=== PATIENT | female | born 1985 | race Caucasian/White ===

== ENCOUNTER 2018-03-07 20:48 | Emergency (ER) | payer OTHER ==
[~2018-03-07] VITALS: Ht 162.6 cm; Wt 140.2 kg
[2018-03-07 21:03] VITALS: BP 125/74
--- NOTE | 2018-03-07 21:06 | NUR ---
to lobby ambulatory , vss , a/w bed, serene noted
--- NOTE | 2018-03-07 21:11 | NUR ---
PT TAKEN TO BED 1 VIA W/C
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
[2018-03-07 22:50] VITALS: BP 133/84
--- NOTE | 2018-03-07 22:50 | NUR ---
Patient discharged with v/s stable. Written and verbal after care instructions given and explained. Patient alert, oriented and verbalized understanding of instructions. Ambulatory with crutches with steady gait. All questions addressed prior to discharge. ID band removed. Patient advised to follow up with PMD. Rx of Tramadol and Motrin given. Patient educated on indication of medication including possible reaction and side effects. Opportunity to ask questions provided and answered.
--- NOTE | 2018-03-07 22:53 | NUR ---
ATTEMPTED TO HAVE PT RETURN DEMONSTRATION ON CRUTCHES, PT REFUSED TO DEOMONSTRATE USE UNTIL TIME OF DISCHARGE. PT STATED HEIGHT IS 5'4, ADJUSTED CRUTCHES TO 5'4 AND LEFT WITH PT.
--- NOTE | 2018-03-07 23:26 | NUR ---
Noticed pt walking with crutches very poorly. Made adjustments to crutches to fit better and did further instruction. Focused teaching on not putting wt on crutches and straight arming, wide base, small steps. Pt is struggling with the technique but getting it correct. Pt is quite tired. Walked pt out to car while reinforcing teaching. Return demo was fair.
== END 2018-03-07 22:50 | disposition home or self-care (01) ==
LOC: MED 20:48
DX: S93.401A Sprain of unspecified ligament of right ankle, initial encounter (principal); J45.909 Unspecified asthma, uncomplicated; E03.9 Hypothyroidism, unspecified; Z88.6 Allergy status to analgesic agent; Z88.5 Allergy status to narcotic agent; V47.5XXA Car driver injured in collision with fixed or stationary object in traffic accident, initial encounter; Y93.89 Activity, other specified; Y92.85 Railroad track as the place of occurrence of the external cause; Y99.8 Other external cause status
CPT/HCPCS: 73610; 99283; Q0092

== ENCOUNTER 2020-01-28 20:00 | Emergency (ER) | payer OTHER ==
[~2020-01-28] VITALS: Ht 162.6 cm; Wt 120.7 kg
[2020-01-28 20:07] VITALS: BP 123/89
--- NOTE | 2020-01-28 20:07 | NUR ---
RIA LENZ IN TRIAGE FOR PT MEDICAL EVALUATION.
--- NOTE | 2020-01-28 20:09 | NUR ---
34 Y/O FEMALE PRESENTED TO THE ED C/O RIGHT MIDDLE FINGER PAIN THAT IS 7/10, PT DESCRIBED PAIN THROBBING AND SHOOTING THAT DOESN'T RADIATE X1 WK. PT DOESN'T REMEMBER ANY TRAUMA TO THE AREA. CMS INTACT. NO OTHER SWELLING NOTED IN THE RIGHT HAND ASIDE FROM R MIDDLE FINGER SWELLING AROUND THE CUTICLE OF THE NAIL. PT DENIES TAKING ANY MEDS FOR PAIN TODAY. PT DENIES FEVER, N/V OR DIARRHEA. PT IS SITTING ON THE BED, BED IS LOCKED AND IN LOWEST POSITION. PT IS NOT IN ANY ACUTE DISTRESS AT THIS TIME. PMH: SEIZURES, DIABETES, FIBROMYALGIA NKA
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
--- NOTE | 2020-01-28 20:13 | NUR ---
PT AMBULATED TO RESTROOM WITH STEADY GAIT
--- NOTE | 2020-01-28 20:15 | NUR ---
PT PROVIDED URINE SAMPLE AT THIS TIME.
--- NOTE | 2020-01-28 20:19 | NUR ---
ERPA AT BEDSIDE FOR RE-EVALUATION
[2020-01-28] MEDS ORDERED: IBUPROFEN 600 MG TAB PO ONE (20:25)
--- NOTE | 2020-01-28 20:28 | NUR ---
erpa at bedside for procedure
[2020-01-28] MEDS ORDERED: ACETAMINOPHEN EXTRA STRENGTH 500 MG TAB PO ONE (20:35)
[2020-01-28] MEDS ORDERED: LIDOCAINE JELLY 2% 30 ML TUBE TP ONE (20:55)
--- NOTE | 2020-01-28 21:10 | NUR ---
PER RIA LENZ , ADMINISTER LIDOCAINE 2% TOPICAL ON PT FINGER PRIOR TO EMT BANDAGING FINGER.
[2020-01-28 21:30] VITALS: BP 123/89
== END 2020-01-28 21:30 | disposition home or self-care (01) ==
LOC: MED 20:00
DX: L03.011 Cellulitis of right finger (principal); E11.9 Type 2 diabetes mellitus without complications; E03.9 Hypothyroidism, unspecified; M54.30 Sciatica, unspecified side; R56.9 Unspecified convulsions
CPT/HCPCS: 81025; 99284

== ENCOUNTER 2020-10-12 06:35 | Emergency (ER) | payer OTHER ==
[~2020-10-12] VITALS: Ht 162.6 cm; Wt 114.3 kg
[2020-10-12 06:41] VITALS: BP 121/87
--- NOTE | 2020-10-12 06:43 | NUR ---
To ED bed 07
--- NOTE | 2020-10-12 06:44 | NUR ---
states has fibromyalgia and needs refill of a compound cream prescription. patient reports have not been able to see PCP but is traveling to [place] and needs medication to be filled. AAOx4. VSS. Denies pmh nkda
--- NOTE | 2020-10-12 06:50 | NUR ---
Dr. Alberto examining patient.
[2020-10-12 07:05] VITALS: BP 121/87
--- NOTE | 2020-10-12 07:05 | NUR ---
Patient discharged with v/s stable. Written and verbal after care instructions given and explained. Patient alert, oriented and verbalized understanding of instructions. Ambulatory with steady gait. All questions addressed prior to discharge. ID band removed. Patient advised to follow up with PMD. Rx of compound cream given. Patient educated on indication of medication including possible reaction and side effects. Opportunity to ask questions provided and answered.
== END 2020-10-12 07:05 | disposition home or self-care (01) ==
LOC: MED 06:35
DX: M79.7 Fibromyalgia (principal); E11.9 Type 2 diabetes mellitus without complications; E03.9 Hypothyroidism, unspecified; Z98.84 Bariatric surgery status
CPT/HCPCS: 99283

== ENCOUNTER 2021-03-23 23:52 | Emergency (ER) | payer OTHER ==
[~2021-03-23] VITALS: Ht 162.6 cm; Wt 112.9 kg
[2021-03-24 00:04] VITALS: BP 137/59
--- NOTE | 2021-03-24 00:06 | NUR ---
PT TO LOBBY
[2021-03-24] MEDS ORDERED: TRAM50TA3 PO (00:37)
== END 2021-03-24 00:44 | disposition home or self-care (01) ==
LOC: MED 23:52
DX: M79.10 Myalgia, unspecified site (principal); E11.9 Type 2 diabetes mellitus without complications; E03.9 Hypothyroidism, unspecified; Z98.84 Bariatric surgery status
CPT/HCPCS: 99283

== ENCOUNTER 2021-07-31 09:42 | Emergency (ER) | payer OTHER ==
[~2021-07-31] VITALS: Ht 162.6 cm; Wt 116.7 kg
[~2021-07-31 09:42] MED LIST: TRAM50TA3 PO
[2021-07-31 09:43] VITALS: BP 109/86
--- NOTE | 2021-07-31 09:52 | NUR ---
PT AMB TO BED 11.
--- NOTE | 2021-07-31 10:00 | NUR ---
35 Y/O FEMALE HERE FOR MED REFILL. PT STATES SHE RAN OUT OF MEDICATIONS YESTERDAY. STATES PAIN 9/10 THROUGHOUT BODY. DENIES EVER/CHILLS. DENIES N/V. RX: 20% TRAMADOL 4% AMATRIPTALINE 10% DEXTROMETHOPHAN 150 GRAMS APPLY 1 GRAM EVERY 6 HOURS. PMH: FIBROMYALGIA NKA
[2021-07-31 11:54] VITALS: BP 109/86
--- NOTE | 2021-07-31 11:54 | NUR ---
Patient discharged with v/s stable. Written and verbal after care instructions given FOR MEEDICATION REFILL and explained. Patient alert, oriented and verbalized understanding of instructions. Ambulatory with steady gait. All questions addressed prior to discharge. ID band removed. Patient advised to follow up with PMD. Rx of 20% TRAMADOL4% [id number]% DEXTROMETHOPHAN 150 GRAMS APPLY 1 GRAM EVERY 6 HOURS. given. Patient educated on indication of medication including possible reaction and side effects. Opportunity to ask questions provided and answered.
== END 2021-07-31 11:54 | disposition home or self-care (01) ==
LOC: MED 09:42
DX: M79.7 Fibromyalgia (principal); E11.9 Type 2 diabetes mellitus without complications; E03.9 Hypothyroidism, unspecified; Z76.0 Encounter for issue of repeat prescription; Z79.899 Other long term (current) drug therapy
CPT/HCPCS: 99281

== ENCOUNTER 2021-10-15 13:31 | Emergency (ER) | payer OTHER ==
[~2021-10-15] VITALS: Ht 162.6 cm; Wt 108.1 kg
[2021-10-15 13:55] VITALS: BP 105/63
[2021-10-15] MEDS ORDERED: BACTO TP (14:08)
[2021-10-15] MEDS ORDERED: HYDR-637 PO (14:08)
[2021-10-15] MEDS ORDERED: BENC TP (14:08)
[2021-10-15] MEDS ORDERED: PRED20TA5 PO (14:08)
--- NOTE | 2021-10-15 14:22 | NUR ---
Patient discharged with v/s stable. Written and verbal after care instructions given. Patient alert, oriented and verbalized understanding of instructions. Ambulatory with steady gait. All questions addressed prior to discharge. ID band removed. Patient advised to follow up with PMD. Rx of Bactroban, Benadryl, Hydroxyzine and Prenidnisone given. Opportunity to ask questions provided and answered.
== END 2021-10-15 14:22 | disposition home or self-care (01) ==
LOC: MED 13:31
DX: L29.9 Pruritus, unspecified (principal); E03.9 Hypothyroidism, unspecified; E11.9 Type 2 diabetes mellitus without complications; Z79.4 Long term (current) use of insulin; Z79.899 Other long term (current) drug therapy
CPT/HCPCS: 99283

== ENCOUNTER 2022-03-14 03:45 | Emergency (ER) | payer OTHER ==
[~2022-03-14] VITALS: Ht 162.6 cm; Wt 110.2 kg
[~2022-03-14 03:45] MED LIST changes: +BACTO TP; +BENC TP; +HYDR-637 PO; +PRED20TA5 PO
[2022-03-14 04:02] VITALS: BP 121/62
--- NOTE | 2022-03-14 04:05 | NUR ---
TO LOBBY A/W BED AMBULATORY
[2022-03-14 04:40] LABS: APPEARANCE,URINE HAZY (CLEAR); BILIRUBIN,URINE NEGATIVE (NEGATIVE); BLOOD, URINE TRACE-I (NEGATIVE); COLOR,URINE YELLOW (YELLOW); LEUKOCYTE ESTERASE ,URINE NEGATIVE (NEGATIVE); NITRITE, URINE NEGATIVE (NEGATIVE); PH,URINE 5.5 (5.0-9.0); UGLUCOSE NEGATIVE (NEGATIVE)
[2022-03-14 04:44] LABS: RBC,URINE 0-5 /HPF (0-5); WBC,URINE 0-5 /HPF (0-5)
--- NOTE | 2022-03-14 05:00 | NUR ---
ALL RESULTS BACK AND NOTED BY ERMD AND FOR DC
[2022-03-14] MEDS ORDERED: NITR100C7 PO (05:05)
[2022-03-14] MEDS ORDERED: PHEN-1877 PO (05:05)
[2022-03-14 05:07] VITALS: BP 121/62
--- NOTE | 2022-03-14 05:07 | NUR ---
Patient discharged with v/s stable BY LANE [facility]. Written and verbal after care instructions given and explained. Patient alert, oriented and verbalized understanding of instructions. Ambulatory with steady gait. All questions addressed prior to discharge. ID band removed. Patient advised to follow up with PMD. Rx of MACROBID, PRYIDIUM given. Patient educated on indication of medication including possible reaction and side effects. Opportunity to ask questions provided and answered.
== END 2022-03-14 05:07 | disposition home or self-care (01) ==
LOC: MED 03:45
DX: N39.0 Urinary tract infection, site not specified (principal); E11.9 Type 2 diabetes mellitus without complications; E03.9 Hypothyroidism, unspecified; Z79.899 Other long term (current) drug therapy; Z98.84 Bariatric surgery status
CPT/HCPCS: 81001; 87086; 99283

== ENCOUNTER 2023-03-22 22:33 | Emergency (ER) | payer OTHER ==
[~2023-03-22] VITALS: Ht 162.6 cm; Wt 102.1 kg
[~2023-03-22 22:33] MED LIST changes: +NITR100C7 PO; +PHEN-1877 PO
[2023-03-22 22:52] VITALS: BP 122/80; PULSE 83; RESP 16; TEMP 97.8; O2SAT 100
[2023-03-22 23:23] VITALS: O2SAT 100
[2023-03-22] MEDS ORDERED: DICYCLOMINE HCL LIQUID 20 MG, ALUMINUM HYD/MAG/SIMETHICONE 30 ML, LIDOCAINE VISCOUS 2% ... PO ONE ×3 (23:40)
[2023-03-22] MEDS ORDERED: FAMOTIDINE 20 MG TAB PO ONE (23:40)
[2023-03-22] MEDS ORDERED: DICYCLOMINE HCL LIQUID 10 MG/5 ML UDC ONE (23:42)
[2023-03-22] MEDS ORDERED: ALUMINUM HYD/MAG/SIMETHICONE 30 ML UDC ONE (23:42)
[2023-03-23] MEDS ORDERED: KETOROLAC 60 MG/2 ML VIAL IM ONE
[2023-03-23] MEDS ORDERED: HYDROcodone/APAP 10/325 MG 1 TAB TAB PO ONE
[2023-03-23 00:19] LABS: APPEARANCE,URINE CLEAR (CLEAR); BILIRUBIN,URINE NEGATIVE (NEGATIVE); BLOOD, URINE NEGATIVE (NEGATIVE); COLOR,URINE YELLOW (YELLOW); LEUKOCYTE ESTERASE ,URINE NEGATIVE (NEGATIVE); NITRITE, URINE NEGATIVE (NEGATIVE); PROTEIN,URINE TRACE (NEGATIVE); UGLUCOSE NEGATIVE (NEGATIVE)
[2023-03-23 00:48] LABS: BASOPHILS # (AUTO) 0.1 K/uL (0.00-0.22); BASOPHILS % (AUTO) 1.8 % (0.0-2.0); EOSINOPHILS # (AUTO) 0.2 K/uL (0-0.4); EOSINOPHILS % (AUTO) 3.7 % (0.0-4.0); HEMATOCRIT 25.3 % (36-48); LYMPHOCYTES # (AUTO) 3.3 K/uL (2.5-16.5); LYMPHOCYTES % (AUTO) 57.3 % (20.5-51.1); MEAN CORPUSCULAR HEMOGLOBIN 21 pg (27-31); MEAN CORPUSCULAR HGB CONC 32 g/dL (33-37); MEAN CORPUSCULAR VOLUME 65.3 fL (80-94); MONOCYTES # (AUTO) 0.3 K/uL (0.8-1.0); MONOCYTES % (AUTO) 5.9 % (1.7-9.3); NEUTROPHILS # (AUTO) 1.8 K/uL (1.8-7.7); NEUTROPHILS % (AUTO) 31.3 % (42.2-75.2); PLATELET COUNT (AUTO) 447 K/uL (140-450); RED BLOOD CELL COUNT(AUTO) 3.88 MIL/uL (4.20-5.40); RED CELL DISTRIBUTION WIDTH 18.5 % (11.6-13.7); WHITE BLOOD COUNT (AUTO) 5.8 K/uL (4.8-10.8)
[2023-03-23 01:09] LABS: ALBUMIN 3.1 g/dL (3.4-5.0); ANION GAP 12.3 (8-16); CALCIUM 8.8 mg/dL (8.5-10.1); CARBON DIOXIDE 26.5 mmol/L (21-32); CREATININE 0.7 mg/dL (0.6-1.3); POTASSIUM 3.8 mmol/L (3.5-5.1); TOTAL BILIRUBIN 0.1 mg/dL (0.0-1.0); TOTAL PROTEIN, SERUM 8.3 g/dL (6.4-8.2)
[2023-03-23] MEDS ORDERED: FERR236T2 PO (02:18)
[2023-03-23] MEDS ORDERED: FAMO-90 PO (02:18)
[2023-03-23] MEDS ORDERED: CALC500C17 PO (02:18)
== END 2023-03-23 02:45 | disposition home or self-care (01) ==
LOC: MED 22:33
DX: K29.70 Gastritis, unspecified, without bleeding (principal); D64.9 Anemia, unspecified; E11.9 Type 2 diabetes mellitus without complications; E03.9 Hypothyroidism, unspecified; Z86.69 Personal history of other diseases of the nervous system and sense organs; Z79.899 Other long term (current) drug therapy; Z79.2 Long term (current) use of antibiotics
CPT/HCPCS: 36415; 76770; 80053; 81003; 81025; 83690; 85025; 96372; 99285; J1885